=== PATIENT | female | born 1970 | race Caucasian/White ===

== ENCOUNTER 2016-04-24 11:52 | Emergency (ER) | payer MEDICAID ==
[~2016-04-24] VITALS: Ht 162.6 cm; Wt 96.4 kg
[~2016-04-24 11:52] MED LIST: LEVO175T5 PO; LEVO175T6 PO
[2016-04-24 11:55] VITALS: BP 127/86
== END 2016-04-24 13:39 | disposition home or self-care (01) ==
LOC: ED 13:25
DX: G56.03 Carpal tunnel syndrome, bilateral upper limbs (principal); J00 Acute nasopharyngitis [common cold]; E03.9 Hypothyroidism, unspecified; E11.9 Type 2 diabetes mellitus without complications; M79.673 Pain in unspecified foot; G89.29 Other chronic pain; F17.200 Nicotine dependence, unspecified, uncomplicated
CPT/HCPCS: 29125; 71020

== ENCOUNTER 2016-06-07 18:26 | Emergency (ER) | payer SELFPAY ==
[~2016-06-07] VITALS: Ht 162.6 cm; Wt 98.5 kg
[2016-06-07 18:29] VITALS: BP 147/93
== END 2016-06-07 20:16 | disposition home or self-care (01) ==
LOC: ED 20:11
DX: M79.672 Pain in left foot (principal); M25.572 Pain in left ankle and joints of left foot; G89.29 Other chronic pain; M79.671 Pain in right foot; I10 Essential (primary) hypertension
CPT/HCPCS: 99284

== ENCOUNTER 2016-09-29 09:16 | Emergency (ER) | payer MEDICAID ==
[~2016-09-29] VITALS: Ht 165.1 cm; Wt 105.0 kg
[2016-09-29] MEDS ORDERED: FAMOTIDINE 20 MG/2 ML ONE (09:55)
[2016-09-29] MEDS ORDERED: ONDANSETRON 2MG/ML, 2ML ONE ×2 (09:55→12:08)
[2016-09-29] MEDS ORDERED: MAALOX/HYOSCYAMINE/LIDOCAINE 45 ML BTL ONE (09:55)
[2016-09-29] MEDS ORDERED: MAALOX/HYOSCYAMINE/LIDOCAINE 45 ML BTL PO ONE (10:00)
[2016-09-29] MEDS ORDERED: SODIUM CHLORIDE FLUSH 10ML SYR IVF ONE (10:00)
[2016-09-29] MEDS ORDERED: ONDANSETRON 2MG/ML, 2ML IVPush ONE ×2 (10:00→12:00)
[2016-09-29] MEDS ORDERED: SODIUM CHLORIDE 0.9% 1,000ML IVBOLUS ONE (10:00)
[2016-09-29] MEDS ORDERED: FAMOTIDINE 20 MG/2 ML IVP ONE (10:00)
[2016-09-29 10:05] LABS: HEMATOCRIT 44.5 % (34.6-47.8); HEMOGLOBIN 15.3 g/dL (11.7-16.4); WHITE BLOOD COUNT 9.3 x10^3/uL (3.4-10)
[2016-09-29 10:18] LABS: ASPARTATE AMINO TRANSFERASE 18 U/L (15-37); BLOOD UREA NITROGEN 16 mg/dL (7-18)
[2016-09-29] MEDS ORDERED: MORPHINE SULFATE 4 MG/ML, 1ML IVPush PRN (12:00)
[2016-09-29] MEDS ORDERED: MORPHINE SULFATE 4 MG/ML, 1ML ONE (12:08)
[2016-09-29] MEDS ORDERED: OMNIPAQUE 350 MG/ML, 100ML BOTTLE ONE (12:12)
[2016-09-29 13:18] VITALS: BP 111/67
== END 2016-09-29 13:20 | disposition home or self-care (01) ==
LOC: ED 10:16
DX: R10.13 Epigastric pain (principal)
CPT/HCPCS: 36415; 74177; 76700; 80053; 81003; 83690; 84703; 85025; 93005; 96361; 96374; 96375; 96376; 99285; J2405; J7030; Q9967; S0028

== ENCOUNTER 2016-11-19 17:21 | Emergency (ER) | payer MEDICAID ==
[~2016-11-19] VITALS: Ht 165.1 cm; Wt 105.0 kg
[2016-11-19 17:22] VITALS: BP 146/107
[2016-11-19] MEDS ORDERED: KETOROLAC 30 MG/1 ML ONE (18:15)
[2016-11-19] MEDS ORDERED: OXYcodone/APAP 5/325MG TABLET ONE (18:15)
[2016-11-19] MEDS ORDERED: ONDANSETRON ODT 4 MG ONE (18:15)
[2016-11-19] MEDS ORDERED: OXYcodone/APAP 5/325MG TABLET PO ONE (18:30)
[2016-11-19] MEDS ORDERED: KETOROLAC 30 MG/1 ML IM ONE (18:30)
[2016-11-19] MEDS ORDERED: ONDANSETRON ODT 4 MG PO ONE (18:30)
== END 2016-11-19 19:19 | disposition home or self-care (01) ==
LOC: ED 18:45
DX: M77.32 Calcaneal spur, left foot (principal); M77.31 Calcaneal spur, right foot; G89.29 Other chronic pain; M25.571 Pain in right ankle and joints of right foot; M25.572 Pain in left ankle and joints of left foot; I10 Essential (primary) hypertension; E11.9 Type 2 diabetes mellitus without complications; F32.9 Major depressive disorder, single episode, unspecified; E03.9 Hypothyroidism, unspecified
CPT/HCPCS: 73630; 96372; 99284; J1885; Q0162

== ENCOUNTER 2016-12-29 20:56 | Emergency (ER) | payer MEDICAID ==
[~2016-12-29] VITALS: Ht 165.1 cm; Wt 110.0 kg
[2016-12-29] MEDS ORDERED: ALBUTEROL/IPRATROPIUM 2.5MG/0.5MG, 3 ML NPPB ONE (22:00)
[2016-12-29 22:23] LABS: HEMATOCRIT 41.8 % (34.6-47.8); HEMOGLOBIN 14.6 g/dL (11.7-16.4); WHITE BLOOD COUNT 9.9 x10^3/uL (3.4-10)
[2016-12-29 22:31] LABS: BLOOD UREA NITROGEN 14 mg/dL (7-18)
[2016-12-29 22:34] LABS: IS PT STATUS REG ER OR PRE ER? YES
[2016-12-29 23:05] VITALS: BP 124/72
== END 2016-12-30 00:05 | disposition home or self-care (01) ==
LOC: ED 21:39
DX: J00 Acute nasopharyngitis [common cold] (principal); E11.9 Type 2 diabetes mellitus without complications; I10 Essential (primary) hypertension; E03.9 Hypothyroidism, unspecified
CPT/HCPCS: 36415; 71020; 80048; 82040; 83880; 84484; 85025; 85379; 93005; 94640; 99285; J7620

== ENCOUNTER 2017-01-31 20:11 | Emergency (ER) | payer MEDICAID ==
[~2017-01-31] VITALS: Ht 165.1 cm; Wt 108.8 kg
[2017-01-31 20:13] VITALS: BP 152/108
[2017-01-31] MEDS ORDERED: KETOROLAC 30 MG/1 ML ONE (21:54)
[2017-01-31] MEDS ORDERED: DIAZEPAM 5 MG TABLET ONE (21:54)
[2017-01-31] MEDS ORDERED: KETOROLAC 30 MG/1 ML IM ONE (22:00)
[2017-01-31] MEDS ORDERED: DIAZEPAM 5 MG TABLET PO ONE (22:00)
== END 2017-01-31 22:22 | disposition home or self-care (01) ==
LOC: ED 22:20
DX: S39.012A Strain of muscle, fascia and tendon of lower back, initial encounter (principal); E03.9 Hypothyroidism, unspecified; E11.9 Type 2 diabetes mellitus without complications; I10 Essential (primary) hypertension; M47.816 Spondylosis without myelopathy or radiculopathy, lumbar region; M47.814 Spondylosis without myelopathy or radiculopathy, thoracic region; M54.32 Sciatica, left side; M54.31 Sciatica, right side; X58.XXXA Exposure to other specified factors, initial encounter; Y93.89 Activity, other specified; Y99.8 Other external cause status; Y92.89 Other specified places as the place of occurrence of the external cause
CPT/HCPCS: 72110; 96372; 99284; J1885

== ENCOUNTER 2017-06-13 18:29 | Emergency (ER) | payer MEDICAID ==
[~2017-06-13] VITALS: Ht 165.1 cm; Wt 108.5 kg
[2017-06-13 18:47] VITALS: BP 137/83
[2017-06-13] MEDS ORDERED: KETOROLAC 30 MG/1 ML ONE (20:10)
[2017-06-13] MEDS ORDERED: KETOROLAC 30 MG/1 ML IM ONE (20:30)
== END 2017-06-13 20:57 | disposition home or self-care (01) ==
LOC: ED 20:49
DX: M25.571 Pain in right ankle and joints of right foot (principal); I10 Essential (primary) hypertension; E03.9 Hypothyroidism, unspecified; E11.9 Type 2 diabetes mellitus without complications; G89.29 Other chronic pain
CPT/HCPCS: 73610; 73630; 96372; 99284; J1885

== ENCOUNTER 2018-07-20 10:35 | Emergency (ER) | payer MEDICAID ==
[~2018-07-20] VITALS: Ht 165.1 cm; Wt 107.3 kg
[2018-07-20 10:42] VITALS: BP 157/92
== END 2018-07-20 11:44 | disposition home or self-care (01) ==
LOC: ED 11:15
DX: J30.2 Other seasonal allergic rhinitis (principal); I10 Essential (primary) hypertension; E11.9 Type 2 diabetes mellitus without complications; F32.9 Major depressive disorder, single episode, unspecified; E03.9 Hypothyroidism, unspecified; F17.200 Nicotine dependence, unspecified, uncomplicated
CPT/HCPCS: 99283

== ENCOUNTER 2018-08-23 04:32 | Emergency (ER) | payer MEDICAID ==
[~2018-08-23] VITALS: Ht 165.1 cm; Wt 104.5 kg
--- NOTE | 2018-08-23 04:54 | NUR ---
Pt presents to ed c/o substernal cpxmultiple weeks "feels like tight, sharp, and stabbing all at the same time" States here tonight because "ranitidine wasnt working tonight and i cant get comfortable." Blood pressure are within 10 points systolic of each other on L and R arms. All monitoring applied. Vss. Call light within reach. Spouse at bedside.
[2018-08-23] MEDS ORDERED: ONDANSETRON 2MG/ML, 2ML ONE (05:18)
[2018-08-23] MEDS ORDERED: FAMOTIDINE 20 MG/2 ML ONE (05:19)
[2018-08-23] MEDS ORDERED: MAALOX/HYOSCYAMINE/LIDOCAINE 45 ML BTL ONE (05:19)
[2018-08-23] MEDS ORDERED: ONDANSETRON 2MG/ML, 2ML IVPush ONE (05:30)
[2018-08-23] MEDS ORDERED: MAALOX/HYOSCYAMINE/LIDOCAINE 45 ML BTL PO ONE (05:30)
[2018-08-23] MEDS ORDERED: FAMOTIDINE 20 MG/2 ML IVP ONE (05:30)
[2018-08-23] MEDS ORDERED: SODIUM CHLORIDE FLUSH 10ML SYR IVF ONE (05:30)
--- NOTE | 2018-08-23 05:36 | NUR ---
Pt states instant relief from gi cocktail. No other immediate needs. Call light wtihin reach. Spouse at bedside.
[2018-08-23 05:37] LABS: BASOPHILS # (AUTO) 0.03 x10^3/uL (0-0.1); BASOPHILS % (AUTO) 0 % (0-1); EOSINOPHILS # (AUTO) 0.52 x10^3/uL (0-0.4); EOSINOPHILS % (AUTO) 5 % (1-7); LYMPHOCYTES # (AUTO) 2.23 x10^3/uL (1-3.4); LYMPHOCYTES % (AUTO) 19 % (22-44); MD NO; MEAN CORPUSCULAR VOLUME 93.9 fL (80-100); MONOCYTES # (AUTO) 0.62 x10^3/uL (0.2-0.8); MONOCYTES % (AUTO) 5 % (2-9); NEUTROPHILS % (AUTO) 71 % (42-75); PLATELET COUNT 283 x10^3/uL (130-400); RED BLOOD COUNT 4.73 x10^6/uL (3.82-5.3); RED CELL DISTRIBUTION WIDTH 12.9 % (9.6-15.2)
[2018-08-23 05:48] LABS: ALBUMIN 3.2 g/dL (3.4-5.0); ANION GAP 10 mmol/L (5-15); CALCIUM 8.6 mg/dL (8.5-10.1); CHLORIDE 108 mmol/L (98-107)
[2018-08-23 05:53] LABS: ALANINE AMINOTRANSFERASE 22 U/L (12-78); ALKALINE PHOSPHATASE 128 U/L (45-117); BILIRUBIN,TOTAL 0.2 mg/dL (0.2-1.0); TOTAL PROTEIN 6.9 g/dL (6.4-8.2); TROPONIN I < 0.015 ng/mL (0.000-0.045)
--- NOTE | 2018-08-23 07:00 | NUR ---
REPORT FROM KIERA BROWNLEE PATIENT RESTING COMFORTABLY IN [facility] REPORT EPIGASTRIC/STERNAL PAIN REMAIN IMPROVED TO 2/10. ASKING TO DRINK-NEUROSCIENCE SPECIALIST ENCOURAGED NPO UNTIL ALL TESTING RESULTED-PATIENT AGREEABLE VITALS WITHIN NORMAL LIMITS ON OBSTETRICS AND GYNECOLOGY PROFESSOR. AMBULATED TO RESTROOM TO VOID-SAMPLE COLLECTED UPDATED ON ESTIMATED POC (AWAITING TESTING RESULTS)
[2018-08-23 07:18] VITALS: BP 163/87
--- NOTE | 2018-08-23 07:47 | NUR ---
TASK RN: FIRST CONTACT WITH PT. KANDACE. Patientgiven discharge instructions and they have confirmed that they understand the instructions. Patient ambulatory with steady gait. Pt left with d/c paperwork, prescription, and all personal belongings. Pt encouraged to return to ED if symptoms worsen or change.
== END 2018-08-23 07:41 | disposition home or self-care (01) ==
LOC: ED 05:20
DX: K29.00 Acute gastritis without bleeding (principal); I10 Essential (primary) hypertension; E03.9 Hypothyroidism, unspecified; F32.9 Major depressive disorder, single episode, unspecified; E11.9 Type 2 diabetes mellitus without complications; Z86.39 Personal history of other endocrine, nutritional and metabolic disease
CPT/HCPCS: 36415; 71045; 76700; 80053; 83690; 84484; 85025; 93005; 96374; 96375; 99284; J2405; J3490

== ENCOUNTER 2019-01-31 18:48 | Emergency (ER) | payer MEDICAID ==
[~2019-01-31] VITALS: Ht 165.1 cm; Wt 102.1 kg
[2019-01-31 18:49] VITALS: BP 148/99
[2019-01-31] MEDS ORDERED: ACETAMINOPHEN 325 MG TABLET ONE (19:21)
[2019-01-31] MEDS ORDERED: IBUPROFEN 200 MG TABLET ONE (19:21)
[2019-01-31] MEDS ORDERED: IBUPROFEN 200 MG TABLET PO ONE (19:30)
[2019-01-31] MEDS ORDERED: ACETAMINOPHEN 325 MG TABLET PO ONE (19:30)
== END 2019-01-31 19:42 ==
LOC: ED 19:36
DX: J01.00 Acute maxillary sinusitis, unspecified (principal); E03.9 Hypothyroidism, unspecified; Z76.0 Encounter for issue of repeat prescription
CPT/HCPCS: 71046; 99283

== ENCOUNTER 2019-02-02 13:57 | Emergency (ER) | payer MEDICAID ==
[~2019-02-02] VITALS: Ht 165.1 cm; Wt 101.5 kg
--- NOTE | 2019-02-02 14:32 | NUR ---
Pt arrives to ed with cold and flu like symptoms of chest congestion and cough. Pt reports that she does not want to be sick anymore and is worried about getting her grandson sick. Pt reports no significant medical hx a this time. nasir
[2019-02-02] MEDS ORDERED: ALBUTEROL SULFATE 2.5 MG/3 ML NPPB ONE (15:30)
[2019-02-02 15:51] LABS: BASOPHILS # (AUTO) 0.06 x10^3/uL (0-0.1); BASOPHILS % (AUTO) 1 % (0-1); EOSINOPHILS # (AUTO) 0.45 x10^3/uL (0-0.4); EOSINOPHILS % (AUTO) 6 % (1-7); LYMPHOCYTES # (AUTO) 2.82 x10^3/uL (1-3.4); LYMPHOCYTES % (AUTO) 36 % (22-44); MD NO; MEAN CORPUSCULAR HEMOGLOBIN 31.3 pg (27.0-34.8); MEAN CORPUSCULAR HGB CONC 34.2 g/dL (32.4-35.8); MEAN CORPUSCULAR VOLUME 91.4 fL (80-100); MEAN PLATELET VOLUME 7.5 fL (7.4-10.4); MONOCYTES # (AUTO) 0.63 x10^3/uL (0.2-0.8); MONOCYTES % (AUTO) 8 % (2-9); NEUTROPHILS # (AUTO) 3.82 x10^3/uL (1.8-6.8); NEUTROPHILS % (AUTO) 49 % (42-75); PLATELET COUNT 332 x10^3/uL (130-400); RED BLOOD COUNT 5.26 x10^6/uL (3.82-5.3)
[2019-02-02 15:58] LABS: ALBUMIN 3.1 g/dL (3.4-5.0); ANION GAP 6 mmol/L (5-15); CALCIUM 8.8 mg/dL (8.5-10.1); CHLORIDE 110 mmol/L (98-107)
[2019-02-02 16:01] LABS: TROPONIN I < 0.015 ng/mL (0.000-0.045)
[2019-02-02 16:07] VITALS: BP 163/109
[2019-02-02] MEDS ORDERED: ALBUTEROL SULFATE 2.5 MG/3 ML ONE (16:09)
--- NOTE | 2019-02-02 16:15 | NUR ---
Pt given Albuterol treatment, okayed by md for rn to do. Pt tolerating well. Lungs coarse and 94% pre procedure.
--- NOTE | 2019-02-02 16:19 | NUR ---
RT treatment complete at this time.
--- NOTE | 2019-02-02 16:37 | NUR ---
Patient is resting comfortably in bed. Vital Signs within normal limits.
--- NOTE | 2019-02-02 17:35 | NUR ---
Patient/Caregiver given discharge instructions and they have confirmed that they understand the instructions. Patient ambulatory with steady gait.
== END 2019-02-02 17:36 | disposition home or self-care (01) ==
LOC: ED 15:14
DX: J44.1 Chronic obstructive pulmonary disease with (acute) exacerbation (principal); F17.210 Nicotine dependence, cigarettes, uncomplicated; I10 Essential (primary) hypertension; E11.9 Type 2 diabetes mellitus without complications; E03.9 Hypothyroidism, unspecified
CPT/HCPCS: 36415; 71046; 80048; 82040; 84484; 85025; 93005; 99284; 99406; J7512; J7613

== ENCOUNTER 2019-03-31 10:07 | Emergency (ER) | payer MEDICAID ==
[~2019-03-31] VITALS: Ht 160 cm; Wt 101.7 kg
[2019-03-31] MEDS ORDERED: LORazepam 2 MG/ML, 1ML ONE (10:30)
[2019-03-31 10:52] LABS: BASOPHILS # (AUTO) 0.07 x10^3/uL (0-0.1); BASOPHILS % (AUTO) 1 % (0-1); EOSINOPHILS # (AUTO) 0.38 x10^3/uL (0-0.4); EOSINOPHILS % (AUTO) 4 % (1-7); LYMPHOCYTES % (AUTO) 22 % (22-44); MD NO; MEAN CORPUSCULAR HEMOGLOBIN 31.4 pg (27.0-34.8); MEAN CORPUSCULAR HGB CONC 33.7 g/dL (32.4-35.8); MEAN CORPUSCULAR VOLUME 93.3 fL (80-100); MEAN PLATELET VOLUME 7.5 fL (7.4-10.4); MONOCYTES # (AUTO) 0.51 x10^3/uL (0.2-0.8); MONOCYTES % (AUTO) 5 % (2-9); NEUTROPHILS # (AUTO) 6.72 x10^3/uL (1.8-6.8); NEUTROPHILS % (AUTO) 68 % (42-75); PLATELET COUNT 341 x10^3/uL (130-400); RED CELL DISTRIBUTION WIDTH 13.6 % (9.6-15.2)
[2019-03-31] MEDS ORDERED: SODIUM CHLORIDE FLUSH 10ML SYR IVF ONE (11:00)
[2019-03-31 11:04] LABS: ALANINE AMINOTRANSFERASE 28 U/L (12-78); ALBUMIN 3.4 g/dL (3.4-5.0); ANION GAP 7 mmol/L (5-15); CALCIUM 8.8 mg/dL (8.5-10.1); CHLORIDE 109 mmol/L (98-107); CREATININE 0.83 mg/dL (0.55-1.02)
[2019-03-31 11:09] LABS: ALKALINE PHOSPHATASE 124 U/L (45-117); BILIRUBIN,TOTAL 0.2 mg/dL (0.2-1.0); TOTAL PROTEIN 7.4 g/dL (6.4-8.2)
--- NOTE | 2019-03-31 11:21 | NUR ---
PT PRESENTS TO ED WITH C/O EPIGASTRIC PAIN X 1 WEEK. PT WAS CONSTIPATED BUT RELIEVED THAT YESTERDAY WITH LAXATIVE. PT DENIES N/V. PT A&OX4, RESPS EVEN AND UNLABORED, NADN. PT INSTRUCTED TO PROVIDE CLEAN CATCH URINE SAMPLE, UP TO BATHROOM WITH STEADY GAIT.
[2019-03-31] MEDS ORDERED: FAMO-79 PO (11:34)
--- NOTE | 2019-03-31 11:36 | NUR ---
EKG HAS BEEN TAKEN IN TRIAGE. URINE SAMPLE SENT TO LAB. PT ATTACHED TO ALL MONITORS. CALL LIGHT IN REACH. AWAITING FURTHER ORDERS AT THIS TIME.
[2019-03-31] MEDS ORDERED: MAALOX/HYOSCYAMINE/LIDOCAINE 45 ML BTL ONE (11:54)
[2019-03-31 11:56] LABS: MICROSCOPIC AUTO
[2019-03-31] MEDS ORDERED: MAALOX/HYOSCYAMINE/LIDOCAINE 45 ML BTL PO ONE (12:00)
--- NOTE | 2019-03-31 12:05 | NUR ---
LUNCH RN: PT MEDCIATED PER MAR FOR EPIGASTRIC PAIN. US AT BEDSIDE. CALL LIGHT WITHIN REACH. FAMILY AT BEDSIDE
[2019-03-31 12:34] LABS: CULTURE INDICATED? NO
--- NOTE | 2019-03-31 13:00 | NUR ---
PT REPORTS ABD PAIN IMPROVED. NO N/V. ALL RESULTS BACK ,CHART UP FOR RECHECK, KEVEN LOPEZ AND DISPO.
[2019-03-31 14:11] VITALS: BP 133/84
--- NOTE | 2019-03-31 14:12 | NUR ---
PT GIVEN DC INSTRUCTIONS AND SCRIPT, EDUCATED REGARDING RX FOR PREVACID, CARAFATE AND ZOFRAN. PT A&O, REPS EVEN AND UNLABORED, NADN. PT AMB TO DC DESK WITH STEADY GAIT ACCOMPANIED BY SPOUSE.
== END 2019-03-31 14:13 | disposition home or self-care (01) ==
LOC: ED 12:59
DX: K29.00 Acute gastritis without bleeding (principal); R11.0 Nausea; K59.00 Constipation, unspecified; I10 Essential (primary) hypertension; E11.9 Type 2 diabetes mellitus without complications; J44.9 Chronic obstructive pulmonary disease, unspecified; E03.9 Hypothyroidism, unspecified; F17.210 Nicotine dependence, cigarettes, uncomplicated
CPT/HCPCS: 36415; 76700; 80053; 81001; 83690; 84703; 85025; 93005; 99285; 99406

== ENCOUNTER → 2019-10-16 | Outpatient (CLI) | payer MEDICAID ==
[~2019-10-16] MED LIST changes: +ATOR40TA78 PO; +FAMO-79 PO; +LEVO125T5 PO; +LIRA0.6P INJ; +LORA10TA75 PO
[2019-10-16 12:18] LABS: ALANINE AMINOTRANSFERASE 25 U/L (12-78); ALBUMIN 3.3 g/dL (3.4-5.0); ANION GAP 5 mmol/L (5-15); CALCIUM 9.1 mg/dL (8.5-10.1); CHLORIDE 108 mmol/L (98-107); CREATININE 0.86 mg/dL (0.55-1.02)
[2019-10-16 12:20] LABS: ALKALINE PHOSPHATASE 129 U/L (45-117); BILIRUBIN,TOTAL 0.3 mg/dL (0.2-1.0); TOTAL PROTEIN 6.7 g/dL (6.4-8.2)
== END | disposition home or self-care (01) ==
LOC: STAR 10:30
PROVIDERS: ATTEND Orthopaedic Surgery
DX: Z01.818 Encounter for other preprocedural examination (principal); M25.571 Pain in right ankle and joints of right foot; M79.671 Pain in right foot
CPT/HCPCS: 36415; 80053; 93005

== ENCOUNTER → 2019-10-21 | Outpatient (CLI) | payer MEDICAID | END | disposition home or self-care (01) | LOC: STAR 09:29 | PROVIDERS: ATTEND Anesthesiology | DX: Z01.812 Encounter for preprocedural laboratory examination (principal); Z20.828 Contact with and (suspected) exposure to other viral communicable diseases | CPT/HCPCS: 36415; 87635 ==

== ENCOUNTER 2019-10-25 06:39 | Day surgery (SDC) | payer MEDICAID ==
[~2019-10-25] VITALS: Ht 165.1 cm; Wt 104.1 kg
[2019-10-25] MEDS ORDERED: LACTATED RINGERS 1,000 ML IV SCH (07:04)
[2019-10-25 07:12] VITALS: BP 132/85
[2019-10-25] MEDS ORDERED: CHLORHEXIDINE 15 ML UDC MM ONE (07:30)
[2019-10-25] MEDS ORDERED: PROPOFOL 50 ML ONE ×2 (08:29→10:26)
[2019-10-25] MEDS ORDERED: MIDAZOLAM 1 MG/ML, 2ML ONE (08:29)
[2019-10-25] MEDS ORDERED: FENTANYL PF 250 MCG/5ML ONE (08:30)
[2019-10-25] MEDS ORDERED: DEXAMETHASONE 4 MG/ML, 1ML ONE (09:03)
[2019-10-25] MEDS ORDERED: CEFAZOLIN 1,000 MG ONE (09:03)
[2019-10-25] MEDS ORDERED: ONDANSETRON 2MG/ML, 2ML ONE (09:03)
[2019-10-25] MEDS ORDERED: BUPIVACAINE/PF 0.5% ONE (09:59)
[2019-10-25] MEDS ORDERED: LIDOCAINE-MPF 1%, 5ML ONE (10:00)
[2019-10-25] MEDS ORDERED: FENTANYL PF 100 MCG/2ML ONE (12:00)
[2019-10-25] MEDS ORDERED: OXYcodone 5 MG/5 ML ORAL.SOL UDC ONE (12:00)
[2019-10-25] MEDS ORDERED: MIDAZOLAM 1 MG/ML, 2ML IV PRN (12:30)
[2019-10-25] MEDS ORDERED: EPHEDRINE 50 MG/ML, 1ML IVPush PRN (12:30)
[2019-10-25] MEDS ORDERED: MEPERIDINE/PF 25MG/0.5ML IVPush PRN (12:30)
[2019-10-25] MEDS ORDERED: ACETAMINOPHEN 325 MG TABLET PO PRN (12:30)
[2019-10-25] MEDS ORDERED: OXYcodone 5 MG/5 ML ORAL.SOL UDC PO PRN ×2 (12:30)
[2019-10-25] MEDS ORDERED: ONDANSETRON 2MG/ML, 2ML IVPush PRN (12:30)
[2019-10-25] MEDS ORDERED: KETOROLAC 30 MG/1 ML IV PRN (12:30)
[2019-10-25] MEDS ORDERED: LABETALOL 5MG/ML, 20ML IV PRN (12:30)
[2019-10-25] MEDS ORDERED: METHOCARBAMOL 1,000 MG in DEXTROSE 5% 100 ML IV PRN (12:30)
[2019-10-25] MEDS ORDERED: HYDROmorphone 1 MG/ML, 1ML INJ IVPush PRN (12:30)
[2019-10-25] MEDS ORDERED: hydrALAzine 20 MG/ML, 1ML IV PRN (12:30)
[2019-10-25] MEDS ORDERED: PROMETHAZINE 12.5 MG SUPP PR PRN (12:30)
[2019-10-25] MEDS ORDERED: FENTANYL PF 100 MCG/2ML IV PRN ×2 (12:30)
== END 2019-10-25 13:50 | disposition home or self-care (01) ==
LOC: OUT 06:39
PROVIDERS: ATTEND Orthopaedic Surgery
DX: M76.821 Posterior tibial tendinitis, right leg (principal); M21.171 Varus deformity, not elsewhere classified, right ankle; M62.469 Contracture of muscle, unspecified lower leg; E78.5 Hyperlipidemia, unspecified; E11.9 Type 2 diabetes mellitus without complications; I10 Essential (primary) hypertension; F17.210 Nicotine dependence, cigarettes, uncomplicated; Z79.899 Other long term (current) drug therapy; Z88.5 Allergy status to narcotic agent; Z88.8 Allergy status to other drugs, medicaments and biological substances; Z72.89 Other problems related to lifestyle; Z82.49 Family history of ischemic heart disease and other diseases of the circulatory system; Z98.890 Other specified postprocedural states
CPT/HCPCS: 27687; 27691; 27695; 28308; 28725; 64445; 73620; 76000; 82962; C1713; C1776; J0690; J1100; J2250; J2405; J2704; J3010; J7120